=== PATIENT | female | born 1955 | race Hispanic/Latino ===

== ENCOUNTER → 2019-04-20 | Outpatient (CLI) | payer OTHER | END | disposition home or self-care (01) | LOC: RAH 10:52 | PROVIDERS: ATTEND Internal Medicine Cardiovascular Disease | DX: Z13.6 Encounter for screening for cardiovascular disorders (principal) | CPT/HCPCS: 75571 ==

== ENCOUNTER → 2021-10-24 | Outpatient (CLI) | payer BC, MEDICARE | END | disposition home or self-care (01) | LOC: RAH 07:29 | PROVIDERS: ATTEND Physical Medicine & Rehabilitation | DX: M47.26 Other spondylosis with radiculopathy, lumbar region (principal); M48.061 Spinal stenosis, lumbar region without neurogenic claudication | CPT/HCPCS: 72148 ==

== ENCOUNTER 2022-03-18 16:59 | Inpatient (IN) | payer BC, MEDICARE ==
[~2022-03-18] VITALS: Ht 160 cm; Wt 62.4 kg
[2022-03-18 17:39] LABS: BASOPHILS % (AUTO) 0.4 % (0.0-5.0); EOSINOPHILS % (AUTO) 1.2 % (0.0-8.0); HEMATOCRIT 40.8 % (36-48); LYMPHOCYTES % (AUTO) 25.2 % (21.0-51.0); MEAN CORPUSCULAR HEMOGLOBIN 28.7 pg (27.0-33.0); MEAN CORPUSCULAR HGB CONC 32.6 g/dL (32.0-36.0); MEAN CORPUSCULAR VOLUME 87.9 fL (79-99); PLATELET COUNT (AUTO) 286 K/uL (130-400); RED BLOOD CELL COUNT(AUTO) 4.64 MIL/uL (4.00-5.50); WHITE BLOOD COUNT (AUTO) 10.2 K/uL (4.8-10.8)
[2022-03-18 17:42] LABS: APPEARANCE,URINE Clear (CLEAR); BILIRUBIN,URINE Negative (NEGATIVE); COLOR,URINE Yellow (YELLOW); GLUCOSE, URINE (UA) >=1000 mg/dL (NEGATIVE); KETONES,URINE 15 mg/dL (NEGATIVE); LEUKOCYTE ESTERASE ,URINE Small (NEGATIVE); NITRATE,URINE Negative (NEGATIVE); OCCULT BLOOD,URINE Negative (NEGATIVE); PROTEIN,URINE Negative (NEGATIVE); UROBILINOGEN,URINE 0.2 mg/dL (0.2-1.0)
[2022-03-18 17:55] LABS: ALBUMIN 3.7 g/dL (3.5-5.0); CREATININE 0.9 mg/dL (0.5-1.5); POTASSIUM 3.7 mmol/L (3.5-5.1)
[2022-03-18 18:02] LABS: RBC,URINE 0-1 /HPF (0-1)
[2022-03-18 18:03] LABS: BACTERIA,URINE Few /HPF (None Seen); SQUAMOUS EPITHELIAL CELL,UR Rare /HPF (0-2); TRANSITIONAL EPI CELLS,URINE Rare /HPF (None Seen)
[2022-03-18] MEDS ORDERED: CEFTRIAXONE 1G VIAL IVP ONE (18:30)
[2022-03-18] MEDS ORDERED: LACTULOSE 20 GM/30 ML UDCUP PO ONE (18:30)
[2022-03-18] MEDS ORDERED: MAGNESIUM CITRATE 296 ML SOLUTION PO ONE (18:30)
[2022-03-18] MEDS ORDERED: ONDANSETRON 4MG INJ IVP ONE (20:00)
[2022-03-18] MEDS ORDERED: MORPHINE 2 MG SYG IVP ONE (20:00)
[2022-03-18] MEDS ORDERED: ONDANSETRON ODT 4MG TAB SL PRN (20:30)
[2022-03-18] MEDS: INSULIN HUMULIN R 100 UNIT/ML 3ML SQ SCH (21:00)
[2022-03-18] MEDS ORDERED: EVOL140P3 SQ (21:23)
[2022-03-18] MEDS ORDERED: LOSA25TA41 PO (21:23)
[2022-03-18] MEDS ORDERED: EMPA10TA PO (21:23)
[2022-03-18] MEDS ORDERED: CLON0.1T PO (21:23)
[2022-03-18] MEDS ORDERED: METF-444 PO (21:23)
[2022-03-18] MEDS ORDERED: ICOS1CAP2 PO (21:23)
[2022-03-18] MEDS ORDERED: CARB1TAB35 PO (21:23)
[2022-03-18] MEDS ORDERED: OPIC50CA PO (21:23)
[2022-03-18] MEDS ORDERED: AEC81 PO (21:23)
[2022-03-19] MEDS: ACETAMINOPHEN 325 MG TAB PO PRN ×2 (02:45→09:49)
[2022-03-19 03:00] VITALS: BP 142/82
[2022-03-19] MEDS: INSULIN HUMULIN R 100 UNIT/ML 3ML SQ SCH ×4 (05:34→21:00)
[2022-03-19 05:55] LABS: BASOPHILS % (AUTO) 0.5 % (0.0-5.0); EOSINOPHILS % (AUTO) 1.6 % (0.0-8.0); HEMATOCRIT 43.4 % (36-48); LYMPHOCYTES % (AUTO) 26.3 % (21.0-51.0); MEAN CORPUSCULAR HEMOGLOBIN 28.1 pg (27.0-33.0); MEAN CORPUSCULAR VOLUME 87.9 fL (79-99); MONOCYTES % (AUTO) 6.7 % (3.0-13.0); NEUTROPHILS % (AUTO) 64.6 % (40.0-77.0); PLATELET COUNT (AUTO) 261 K/uL (130-400); RED BLOOD CELL COUNT(AUTO) 4.94 MIL/uL (4.00-5.50); WHITE BLOOD COUNT (AUTO) 7.5 K/uL (4.8-10.8)
[2022-03-19 06:09] LABS: ALBUMIN 3.6 g/dL (3.5-5.0); CREATININE 0.7 mg/dL (0.5-1.5); POTASSIUM 3.8 mmol/L (3.5-5.1)
[2022-03-19 08:00] VITALS: BP 137/68
[2022-03-19 11:47] VITALS: BP 130/74
[2022-03-19] MEDS ORDERED: POTASSIUM CHLORIDE 10% ELIXIR 20 MEQ/15 ML UDCUP PO PRN (12:00)
[2022-03-19] MEDS ORDERED: REPATHA SQ SCH (12:00)
[2022-03-19] MEDS ORDERED: LIDOCAINE HCL-MPF 1% 2ML VIAL IV PRN (12:00)
[2022-03-19] MEDS ORDERED: POTASSIUM CHLORIDE 20MEQ/100ML 100 ML IV PRN (12:00)
[2022-03-19] MEDS ORDERED: CLONIDINE HCL 0.1 MG TABLET PO PRN (12:00)
[2022-03-19] MEDS: KCL 20 MEQ ERTAB PO PRN ×2 (12:58→16:50)
[2022-03-19] MEDS: CARBIDOPA-LEVODOPA 25-100 TAB PO SCH ×3 (12:58→20:48)
[2022-03-19] MEDS: MORPHINE 2 MG SYG IVP PRN ×2 (13:00→20:56)
[2022-03-19 16:00] VITALS: BP 120/71
[2022-03-19] MEDS: CEFTRIAXONE 1G VIAL IVP SCH (16:49)
[2022-03-19] MEDS: METFORMIN HCL 500 MG TABLET PO SCH (16:50)
[2022-03-19] MEDS: LOSARTAN 25 MG TABLET PO SCH (20:48)
[2022-03-19] MEDS: DOCUSATE SODIUM 100 MG CAP PO SCH (20:48)
[2022-03-19] MEDS: [UNRECOGNIZED DRUG - OTHER] PO SCH (20:49)
[2022-03-19] MEDS: ONGENTYS PO SCH (20:49)
[2022-03-19] MEDS ORDERED: DOCUSATE SODIUM 100 MG CAP PO SCH (21:00)
[2022-03-19 21:27] VITALS: BP 135/80
[2022-03-19 23:48] VITALS: BP 124/64
[2022-03-20] MEDS: MORPHINE 2 MG SYG IVP PRN (02:01)
[2022-03-20 05:13] VITALS: BP 132/77
[2022-03-20] MEDS: INSULIN HUMULIN R 100 UNIT/ML 3ML SQ SCH ×4 (05:40→21:00)
[2022-03-20 08:00] VITALS: BP 135/76
[2022-03-20] MEDS: **HM**JARDIANCE 10MG PO SCH (09:00)
[2022-03-20] MEDS: [UNRECOGNIZED DRUG - OTHER] PO SCH ×2 (09:00→19:54)
[2022-03-20] MEDS: METFORMIN HCL 500 MG TABLET PO SCH ×2 (09:01→18:44)
[2022-03-20] MEDS: CARBIDOPA-LEVODOPA 25-100 TAB PO SCH ×4 (09:01→22:26)
[2022-03-20] MEDS: PANTOPRAZOLE 40 MG/VIAL IVP SCH (09:01)
[2022-03-20] MEDS: ASPIRIN 81 MG EC TAB PO SCH (09:01)
[2022-03-20] MEDS: KETOROLAC 15MG/ML VIAL (15MG/ML) IV PRN ×2 (09:39→23:32)
[2022-03-20 11:32] VITALS: BP 107/64
[2022-03-20 16:00] VITALS: BP 121/71
[2022-03-20] MEDS: CEFTRIAXONE 1G VIAL IVP SCH (18:44)
[2022-03-20] MEDS: DOCUSATE SODIUM 100 MG CAP PO SCH (19:54)
[2022-03-20] MEDS: ONGENTYS PO SCH (19:54)
[2022-03-20] MEDS: LOSARTAN 25 MG TABLET PO SCH (19:54)
[2022-03-20 20:55] VITALS: BP 142/75
[2022-03-20 23:52] VITALS: BP 115/70
[2022-03-21 03:52] VITALS: BP 116/67
[2022-03-21] MEDS: MORPHINE 2 MG SYG IVP PRN (04:03)
[2022-03-21] MEDS: INSULIN HUMULIN R 100 UNIT/ML 3ML SQ SCH ×4 (05:39→20:23)
[2022-03-21 06:51] LABS: BASOPHILS % (AUTO) 0.7 % (0.0-5.0); HEMATOCRIT 39.6 % (36-48); LYMPHOCYTES % (AUTO) 35.9 % (21.0-51.0); MEAN CORPUSCULAR HEMOGLOBIN 29.2 pg (27.0-33.0); MEAN CORPUSCULAR HGB CONC 33.3 g/dL (32.0-36.0); MEAN CORPUSCULAR VOLUME 87.6 fL (79-99); NEUTROPHILS % (AUTO) 54.2 % (40.0-77.0); PLATELET COUNT (AUTO) 253 K/uL (130-400); RED BLOOD CELL COUNT(AUTO) 4.52 MIL/uL (4.00-5.50); RED CELL DISTRIBUTION WIDTH 12.9 % (11.0-15.5)
[2022-03-21 06:57] LABS: CREATININE 0.7 mg/dL (0.5-1.5); POTASSIUM 4.1 mmol/L (3.5-5.1)
[2022-03-21 07:30] VITALS: BP 151/87
[2022-03-21] MEDS: PANTOPRAZOLE 40 MG/VIAL IVP SCH (08:25)
[2022-03-21] MEDS: CARBIDOPA-LEVODOPA 25-100 TAB PO SCH ×4 (08:26→20:21)
[2022-03-21] MEDS: METFORMIN HCL 500 MG TABLET PO SCH ×2 (08:26→14:51)
[2022-03-21] MEDS: ASPIRIN 81 MG EC TAB PO SCH (08:26)
[2022-03-21] MEDS: KETOROLAC 15MG/ML VIAL (15MG/ML) IV PRN (08:39)
[2022-03-21] MEDS: **HM**JARDIANCE 10MG PO SCH (08:40)
[2022-03-21] MEDS: [UNRECOGNIZED DRUG - OTHER] PO SCH ×2 (08:40→20:30)
[2022-03-21 11:00] VITALS: BP 117/70
[2022-03-21 16:00] VITALS: BP 126/64
[2022-03-21] MEDS ORDERED: PEG 3350/NA SULF,BICARB,CL/KCL 4000 ML SOLN PO ONE (16:00)
[2022-03-21] MEDS: CEFTRIAXONE 1G VIAL IVP SCH (18:33)
[2022-03-21] MEDS: LOSARTAN 25 MG TABLET PO SCH (20:21)
[2022-03-21] MEDS: DOCUSATE SODIUM 100 MG CAP PO SCH (20:21)
[2022-03-21] MEDS: ONGENTYS PO SCH (20:28)
[2022-03-21 21:01] VITALS: BP 132/59
[2022-03-22] VITALS (22 sets, daily range): BP systolic 104–149; BP diastolic 45–87
[2022-03-22] MEDS: KETOROLAC 15MG/ML VIAL (15MG/ML) IV PRN (00:47)
[2022-03-22] MEDS: INSULIN HUMULIN R 100 UNIT/ML 3ML SQ SCH ×4 (06:36→20:30)
[2022-03-22] MEDS: METFORMIN HCL 500 MG TABLET PO SCH ×2 (08:00→17:40)
[2022-03-22] MEDS ORDERED: PROPOFOL 10 MG/ML 20ML VIAL IV ONE ×2 (08:09)
[2022-03-22] MEDS: ASPIRIN 81 MG EC TAB PO SCH (09:00)
[2022-03-22] MEDS: [UNRECOGNIZED DRUG - OTHER] PO SCH ×2 (09:00→20:04)
[2022-03-22] MEDS: **HM**JARDIANCE 10MG PO SCH (09:00)
[2022-03-22] MEDS: PANTOPRAZOLE 40 MG/VIAL IVP SCH (09:41)
[2022-03-22] MEDS: CARBIDOPA-LEVODOPA 25-100 TAB PO SCH ×4 (09:45→20:02)
[2022-03-22] MEDS: CEFTRIAXONE 1G VIAL IVP SCH (17:40)
[2022-03-22] MEDS: DOCUSATE SODIUM 100 MG CAP PO SCH (20:01)
[2022-03-22] MEDS: LOSARTAN 25 MG TABLET PO SCH (20:01)
[2022-03-22] MEDS: ONGENTYS PO SCH (20:04)
[2022-03-23] VITALS: BP_SYST 110; BP_SYST 116; BP_DIAS 62; BP_DIAS 66
[2022-03-23 04:00] VITALS: BP 124/66
[2022-03-23 05:31] LABS: HEMATOCRIT 43.9 % (36-48); MEAN CORPUSCULAR HGB CONC 32.1 g/dL (32.0-36.0); MEAN CORPUSCULAR VOLUME 90.1 fL (79-99); RED BLOOD CELL COUNT(AUTO) 4.87 MIL/uL (4.00-5.50); RED CELL DISTRIBUTION WIDTH 12.9 % (11.0-15.5); WHITE BLOOD COUNT (AUTO) 7.1 K/uL (4.8-10.8)
[2022-03-23] MEDS: INSULIN HUMULIN R 100 UNIT/ML 3ML SQ SCH ×2 (05:47→11:30)
[2022-03-23 05:55] LABS: CREATININE 0.6 mg/dL (0.5-1.5); POTASSIUM 3.8 mmol/L (3.5-5.1)
[2022-03-23 07:57] VITALS: BP 147/74
[2022-03-23] MEDS: METFORMIN HCL 500 MG TABLET PO SCH (08:04)
[2022-03-23] MEDS: PANTOPRAZOLE 40 MG/VIAL IVP SCH (08:04)
[2022-03-23] MEDS: CARBIDOPA-LEVODOPA 25-100 TAB PO SCH ×2 (08:04→12:10)
[2022-03-23] MEDS: ASPIRIN 81 MG EC TAB PO SCH (08:05)
[2022-03-23] MEDS: **HM**JARDIANCE 10MG PO SCH (09:00)
[2022-03-23] MEDS: [UNRECOGNIZED DRUG - OTHER] PO SCH (09:00)
[2022-03-23 11:35] VITALS: BP 146/83
== END 2022-03-23 15:00 | disposition home or self-care (01) | DRG 392 ==
LOC: EDH 16:59 → EDHIP 20:01 → 4AH 03-19 02:43
PROVIDERS: ADMIT Internal Medicine Infectious Disease; ATTEND Internal Medicine Infectious Disease
PROC: 0DJD8ZZ Inspection of Lower Intestinal Tract, Via Natural or Artificial Opening Endoscopic (ICD-10-PCS; principal; 2022-03-22)
DX: K57.30 Diverticulosis of large intestine without perforation or abscess without bleeding (principal); E87.1 Hypo-osmolality and hyponatremia; I10 Essential (primary) hypertension; E11.9 Type 2 diabetes mellitus without complications; E78.00 Pure hypercholesterolemia, unspecified; E86.1 Hypovolemia; K80.20 Calculus of gallbladder without cholecystitis without obstruction; Z82.49 Family history of ischemic heart disease and other diseases of the circulatory system; Z90.710 Acquired absence of both cervix and uterus; Z82.0 Family history of epilepsy and other diseases of the nervous system; G20 Parkinson's disease; Z20.822 Contact with and (suspected) exposure to COVID-19; M19.90 Unspecified osteoarthritis, unspecified site; Z83.3 Family history of diabetes mellitus; E78.5 Hyperlipidemia, unspecified; K59.09 Other constipation; K64.8 Other hemorrhoids
CPT/HCPCS: 36415; 45378; 71250; 73501; 74176; 78226; 78306; 80048; 80053; 81001; 82948; 83690; 83735; 84484; 85025; 85027; 87088; 87426; A9503; A9537; C9113; G0378; J0696; J1885; J2405; J2704